=== PATIENT | male | born 1970 | race Two or more races ===

== ENCOUNTER 2018-06-19 08:26 | Outpatient (CLI) | payer OTHER ==
[~2018-06-19 08:26] MED LIST: NAPR500T14 PO; NORFLEX100MG PO
== END 2018-06-19 08:45 | disposition home or self-care (01) ==
LOC: TOM 08:26
DX: K57.31 Diverticulosis of large intestine without perforation or abscess with bleeding (principal); I71.9 Aortic aneurysm of unspecified site, without rupture

== ENCOUNTER 2019-03-20 18:48 | Emergency (ER) | payer OTHER ==
[~2019-03-20] VITALS: Ht 180.3 cm; Wt 77.1 kg
== END 2019-03-20 21:44 | disposition home or self-care (01) ==
LOC: ER 18:48
DX: J11.1 Influenza due to unidentified influenza virus with other respiratory manifestations (principal)